=== PATIENT | female | born 1935 | race Caucasian/White ===

== ENCOUNTER 2017-06-12 06:34 | Day surgery (SDC) | payer MEDICARE, OTHER ==
[~2017-06-12 06:34] MED LIST: Buffered Lidocaine 0.9% SYRIN* 5 ML/SYR SYRINGE INTRADERM ONE; Famotidine IV* 10 MG/ML 2 ML (20 mg) IV ONE; Metoclopramide TAB* 10 MG PO ONE
[2017-06-12] MEDS ORDERED: Dexamethasone IV* 4 MG/ML 1 ML (4 MG) ONE (06:55)
[2017-06-12] MEDS ORDERED: Ondansetron INJ* 2 MG/ML VIAL ONE ×2 (06:55→07:18)
[2017-06-12] MEDS ORDERED: Metoclopramide TAB* 10 MG ONE (06:55)
[2017-06-12] MEDS ORDERED: Famotidine IV* 10 MG/ML 2 ML (20 mg) ONE (06:55)
[2017-06-12] MEDS ORDERED: Buffered Lidocaine 0.9% SYRIN* 5 ML/SYR SYRINGE ONE (06:55)
[2017-06-12] MEDS ORDERED: Clindamycin 900 MG IVPREMIX(* 900 MG/50 ML SDV IV ONE (06:55)
[2017-06-12] MEDS ORDERED: Bacitracin OINTMENT* 1 TUBE ONE (07:11)
[2017-06-12] MEDS ORDERED: Lidocaine 1.5% EPI 1:200,000* 30 ML SDV ONE (07:11)
[2017-06-12] MEDS ORDERED: KETAMINE HCL* 50 MG/ML 10 ML VIAL ONE (07:18)
[2017-06-12] MEDS ORDERED: Propofol* 10 MG/ML 20 ML BTL IV PUSH ONE (07:18)
[2017-06-12] MEDS ORDERED: fentaNYL* 50 MCG/ML 2 ML VIAL (100 MCG VIAL) ONE (07:18)
[2017-06-12] MEDS ORDERED: Glycopyrrolate IV* 0.2 MG/ML 1 ML VIAL ONE (07:18)
[2017-06-12] MEDS ORDERED: Lidocaine 2% PF * 5 ML VIAL ONE (07:18)
[2017-06-12] MEDS ORDERED: Midazolam* 1 MG/ML 5 ML VIAL (5 MG) ONE (07:18)
[2017-06-12] MEDS ORDERED: Acetaminophen IV 1GM/100ML * 10 MG/ML VIAL IVPB PRN (07:34)
[2017-06-12] MEDS ORDERED: DiMENhydriNATE IV* 50 MG/ML VIAL IV PUSH PRN (07:34)
[2017-06-12] MEDS ORDERED: Lidocaine 2% W/EPI 1:100,000* 20 ML MDV ONE (08:02)
[2017-06-12] MEDS ORDERED: Acetaminophen TAB* 325 MG ONE (09:55)
[2017-06-12 11:21] VITALS: BP 113/71
== END 2017-06-12 11:10 | disposition home or self-care (01) ==
LOC: OR 06:34
PROVIDERS: ATTEND Plastic Surgery
PROC: 0W020ZZ Alteration of Face, Open Approach (ICD-10-PCS; principal; 2017-06-12 07:45)
DX: H02.403 Unspecified ptosis of bilateral eyelids (principal); J44.9 Chronic obstructive pulmonary disease, unspecified; E03.9 Hypothyroidism, unspecified; M81.0 Age-related osteoporosis without current pathological fracture; M19.90 Unspecified osteoarthritis, unspecified site; E78.5 Hyperlipidemia, unspecified
CPT/HCPCS: A9270-GY; J1100; J2250; J2405; J2704; J3010

== ENCOUNTER 2018-01-13 14:51 | Day surgery (SDC) | payer MEDICARE ==
[~2018-01-13 14:51] MED LIST changes: +Clindamycin 900 MG IVPREMIX(* 900 MG/50 ML SDV IV ONE; +Dexamethasone IV* 4 MG/ML 1 ML (4 MG) IV SLOW PU ONE; +Dexamethasone IV* 4 MG/ML 1 ML (4 MG) ONE; +Famotidine TAB* 20 MG ONE; -Metoclopramide TAB* 10 MG PO ONE
[2018-01-13] MEDS ORDERED: Midazolam* 1 MG/ML 5 ML VIAL (5 MG) ONE (16:26)
[2018-01-13] MEDS ORDERED: fentaNYL* 50 MCG/ML 2 ML VIAL (100 MCG VIAL) ONE (16:26)
[2018-01-13] MEDS ORDERED: Propofol* 10 MG/ML 20 ML BTL IV PUSH ONE (16:27)
[2018-01-13] MEDS ORDERED: Ondansetron INJ* 2 MG/ML VIAL ONE (16:27)
[2018-01-13] MEDS ORDERED: Mineral Oil Sterile, TOPICAL* 25 ML BTL ONE (17:06)
[2018-01-13] MEDS ORDERED: Methylene Blue 0.5 %* 50 MG/10 ML AMP IV ONE (17:06)
[2018-01-13] MEDS ORDERED: Lidocain 1% EPI 1:100,000 * 30 ML MDV ONE (17:06)
[2018-01-13] MEDS ORDERED: Naloxone* 0.4 MG/ML 1 ML VIAL IV PRN (17:24)
[2018-01-13 19:31] VITALS: BP 115/67
== END 2018-01-13 19:46 | disposition home or self-care (01) ==
LOC: OR 14:51
PROVIDERS: ATTEND Plastic Surgery
DX: C44.212 Basal cell carcinoma of skin of right ear and external auricular canal (principal); J44.9 Chronic obstructive pulmonary disease, unspecified; M81.0 Age-related osteoporosis without current pathological fracture; M19.90 Unspecified osteoarthritis, unspecified site; E03.9 Hypothyroidism, unspecified; K22.8 Other specified diseases of esophagus; Z85.850 Personal history of malignant neoplasm of thyroid
CPT/HCPCS: 88305; 88331; 88332; A9270-GY; J1100; J2250; J2405; J2704; J3010

== ENCOUNTER 2018-03-17 12:05 | Emergency (ER) | payer MEDICARE ==
[2018-03-17 12:36] LABS: ABS Basophils 0.1 10^3/ul (0-0.2); ABS Eosinophils 0.2 10^3/ul (0-0.6); ABS Lymphocytes 1.9 10^3/ul (1.0-4.8); ABS Monocytes 0.6 10^3/ul (0-0.8); ABS Nucleated RBC 0 10^3/ul; Eosinophil % 4.7 % (0-6); Hematocrit 48 % (35-47); Hemoglobin 15.9 g/dl (12.0-16.0); Lymphocyte % 39.5 % (25-47); Mean Corpuscular HGB Conc 33 g/dl (31-36); Mean Corpuscular Hemoglobin 30 pg (27-31); Mean Corpuscular Volume 92 fL (80-97); Mean Platelet Volume 8.4 um3 (7.4-10.4); Nucleated Red Blood Cells % 0.1; Platelet Count 254 10^3/ul (150-450); Red Blood Count 5.24 10^6/ul (4.00-5.40); Red Cell Distribution Width 14 % (10.5-15); White Blood Count 4.8 10^3/ul (3.5-10.8)
--- NOTE | 2018-03-17 12:36 | RAD ---
HISTORY: weakness COMPARISONS: February 04, 2008 VIEWS: 4: Frontal dual-energy and lateral views of the chest. FINDINGS: CARDIOMEDIASTINAL SILHOUETTE: The cardiomediastinal silhouette is normal. NOLBERTO: The nolberto are normal. PLEURA: The costophrenic angles are sharp. No pleural abnormalities are noted. LUNG PARENCHYMA: There are calcified granulomas of the right upper lung. There is a noncalcified 0.6 cm nodule of the right upper lung. ABDOMEN: The upper abdomen is clear. There is no subphrenic gas. BONES AND SOFT TISSUES: There is diffuse osteopenia. There is scoliotic curvature of the spine. OTHER: None. IMPRESSION: THERE IS A NONCALCIFIED 0.6 CM NODULE OF THE RIGHT UPPER LUNG ARE SEEN ON THE PREVIOUS EXAMINATION. RECOMMEND CONSIDERATION OF FURTHER EVALUATION WITH CT OF THE CHEST IN THE NONACUTE SETTING.
--- NOTE | 2018-03-17 12:40 | RAD ---
INDICATION: Left-sided weakness COMPARISON: None. TECHNIQUE: Contiguous axial sections of the brain were obtained from the skull base to the vertex without contrast. FINDINGS: The ventricles, cisterns and sulci are within normal limits. There is mild multifocal hypoattenuation of the periventricular and subcortical white matter most consistent with chronic microvascular disease. Otherwise the guardado-white matter differentiation is adequately maintained and there is no sulcal effacement. No significant focal abnormality or mass effect is present. There is no evidence for intracranial hemorrhage. No significant focal osseous abnormality is present. The visualized portion of the paranasal sinuses appear clear. The mastoid air cells are well aerated bilaterally. IMPRESSION: CT findings are consistent with mild chronic microvascular disease in this otherwise nonacute CT of the brain.
[2018-03-17 12:47] LABS: INR 0.88 (0.77-1.02)
[2018-03-17 13:00] LABS: EGFR Non-African American 42.9 (>60)
[2018-03-17 14:52] LABS: Urine Appearance Clear; Urine Blood Negative (Negative); Urine Color Straw; Urine Ketones Negative (Negative); Urine Protein Negative (Negative); Urine Red Blood Cell Absent (Absent); Urine Specific Gravity 1.004 (1.010-1.030); Urine Urobilinogen Negative (Negative); Urine White Blood Cell 1+(6-10/hpf) (Absent)
[2018-03-17 15:02] VITALS: BP 156/90
--- NOTE | 2018-03-20 10:45 | ED ---
Hunter Luna Angela, scribed for Gilberto Soto MD on 03/17/18 at 1214 . Neurological HPI - HPI Summary HPI Summary: This pt is an 83 y/o female presenting to [facility] c/o sudden onset of left arm weakness approximately at 11:20 this morning. Pt reports she was getting ready to do something when she felt her left arm very heavy. She states she then felt her left arm tingling and weak. Pt notes she was not able to lift up her left arm. Denies chest pain, SOB, visual changes, slurred speech, facial droop, difficulty ambulating. Currently denies left arm heaviness and weakness. - History of Current Complaint Stated Complaint: WEAKNESS Hx Obtained From: Patient Onset/Duration: Sudden Onset, Resolved Timing: Sudden Onset Onset Severity: Moderate Current Severity: None Neurological Deficit Location: LUE Pain Intensity: 0 - denies pain Pain Scale Used: 0-10 Numeric Character: Weak, Numbness/Tingling Aggravating: Nothing Alleviating: Spontanious Resolution Associated Signs and Symptoms: Positive: Weakness, Numbness. Negative: Unsteady Gait, Pain, Impaired Speech, Chest Pain, Shortness of Breath - Allergy/Home Medications Allergies/Adverse Reactions: Allergies Allergy/AdvReac Type Severity Reaction Status Date / Time cocoa butter Allergy Rash Verified 01/13/18 15:13 Penicillins Allergy Rash Verified 01/13/18 15:13 Sulfa (Sulfonamide Allergy Rash Verified 01/13/18 15:13 Antibiotics) Home Medications: Home Medications Calcium Carbonate/Vitamin D3 [Calcium 600+D Softgel] 1 cap PO DAILY 03/17/18 [ History Confirmed 03/17/18] Multivitamins/Minerals TAB* [Theragran/minerals TAB*] 1 tab PO DAILY 03/17/18 [ History Confirmed 03/17/18] Tiotropium CAP.INH* [Spiriva CAP.INH*] 1 cap.inh INH DAILY 03/17/18 [History Confirmed 03/17/18] PMH/Surg Hx/FS Hx/Imm Hx Endocrine/Hematology History: Reports: Hx Thyroid Disease - CANCER Cardiovascular History: Reports: Other Cardiovascular Problems/Disorders - dyslipidemia - pt stopped taking simvastatin GI History: Reports: Hx Irritable Bowel, Other GI Disorders - presbyesophagus Musculoskeletal History: Reports: Hx Arthritis - reports in fingers, Other Musculoskeletal History - OSTEOARTHRITIS IN BACK Sensory History: Reports: Hx Cataracts - bilateral, Hx Contacts or Glasses - GLASSES Denies: Hx Hearing Aid Opthamlomology History: Reports: Hx Cataracts - bilateral, Hx Contacts or Glasses - GLASSES Psychiatric History: Reports: 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 2001 RIGHT THYROID LOBECTOMY, [facility] [place]. bilateral cataracts with IOL's - [place] - [facility] [place] BROW LIFT 2017 Hx Anesthesia Reactions: Yes - WAS VERY DROWSY AFTER CATARACT SURGERY Infectious Disease History: No Infectious Disease History: Denies: Traveled Outside the [place] in Last 30 Days - Family History Known Family History: Positive: Cardiac Disease - Father with OR Family History: Paternal aunt with stroke. No FHx of skin CA. - Social History Alcohol Use: Rare Alcohol Amount: maybe 1 per year Substance Use Type: Reports: None Smoking Status (MU): Former Smoker Type: Cigarettes Amount Used/How Often: 1.5-2 PPD Length of Time of Smoking/Using Tobacco: 40 YEARS Have You Smoked in the Last Year: No Review of Systems Negative: Fever Negative: Other - visual changes Negative: Chest Pain Negative: Shortness Of Breath Neurological: Other - POS: dizziness. NEG: difficulty ambulating Positive: Weakness, Numbness - on left arm. Negative: Slurred Speech All Other Systems Reviewed And Are Negative: Yes Physical Exam - Summary Physical Exam Summary: VITAL SIGNS: Reviewed. GENERAL: Patient is a well-developed and nourished female who is lying comfortable in the stretcher. Patient is not in any acute respiratory distress. HEAD AND FACE: No signs of trauma. No ecchymosis, hematomas or skull depressions. No sinus tenderness. EYES: PERRLA, EOMI x 2, No injected conjunctiva, no nystagmus. No photophobia. EARS: Hearing grossly intact. Ear canals and tympanic membranes are within normal limits. MOUTH: Oropharynx within normal limits. NECK: Supple, trachea is midline, no adenopathy, no JVD, no carotid bruit, no c- spine tenderness, neck with full ROM. No meningeal signs, no Kernig's or brudzinskis signs. CHEST: Symmetric, no tenderness at palpation LUNGS: Clear to auscultation bilaterally. No wheezing or crackles. CVS: Regular rate and rhythm, S1 and S2 present, no murmurs or gallops appreciated. ABDOMEN: Soft, non-tender. No signs of distention. No rebound no guarding, and no masses palpated. Bowel sounds are normal. EXTREMITIES: FROM in all major joints, no edema, no cyanosis or clubbing. NEURO: Alert and oriented x 3. No acute neurological deficits. Speech is normal and follows commands. SKIN: Dry and warm GCS: 15 Triage Information Reviewed: Yes Vital Signs On Initial Exam: Initial Vitals Temp Pulse Resp BP Pulse Ox 98.4 F 77 16 157/102 95 03/17/18 12:10 03/17/18 12:10 03/17/18 12:10 03/17/18 12:10 03/17/18 12:10 Vital Signs Reviewed: Yes Diagnostics - Vital Signs Vital Signs Temp Pulse Resp BP Pulse Ox 03/17/18 12:10 98.4 F 77 16 157/102 95 - Laboratory Result Diagrams: 03/17/18 12:20 03/17/18 12:20 Lab Statement: Any lab studies that have been ordered have been reviewed, and results considered in the medical decision making process. - Radiology Chest XR Xray Interpretation: Positive (See Comments) - IMPRESSION: There is a noncalcified 0.6 cm nodule of the right upper lung are seen on the previous examination. Recommend consideration of further evaluation with CT of the chest in the nonacute setting. Dr. Soto has reviewed this radiology report. Radiology Interpretation Completed By: Radiologist - CT Brain CT CT Interpretation: No Acute Changes - IMPRESSION: CT findings are consistent with mild chronic microvascular disease in this otherwise nonacute CT of the brain. Dr. Soto has reviewed this radiology report. CT Interpretation Completed By: Radiologist - EKG 12:14 Cardiac Rate: NL - at 69 bpm EKG Rhythm: Sinus Rhythm EKG Interpretation: No ST elevations NIH Scale - NIH Scale Level of Consciousness: Alert/Keenly Responsive Ask Patient the Month and His/Her Age: Both Correct Ask Pt to Open/Close Eyes and Nurse Chemical Dependency/Release Non-Paretic Hand: Both Correctly Best Gaze (Only Horizontal Eye Movement): Normal Visual Field Testing: No Visual Loss Facial Paresis-Pt to Smile & Close Eyes or Grimace Symmetry: Normal/Symmetrical Motor Function - Right Arm: No Drift-Holds 10 Seconds Motor Function - Left Arm: No Drift-Holds 10 Seconds Motor Function - Right Leg: No Drift-Holds 10 Seconds Motor Function - Left Leg: No Drift-Holds 10 Seconds Limb Ataxia-Must be out of Proportion to Weakness Present: Absent Sensory (Use Pinprick to Test Arms/Legs/Trunk/Face): Normal Best Language (Describe Picture, Name Items): No Aphasia Dysarthria (Read Several Words): Normal Extinction and Inattention: No Abnormality Total Score: 0 Course/Dx - Course Assessment/Plan: Pt is an 83 y/o female who presents with sudden onset of left arm weakness and heaviness at approximately 11:20 this morning. Pt notes her left arm weakness and heaviness has currently spontaneously resolved. Test results without any significant abnormalities except for increased BUN and creatinine, possibly secondary to dehydration. She was given IV fluids. Urinalysis is negative for UTI. Chest XR shows there is a noncalcified 0.6 cm nodule of the right upper lung are seen on the previous examination. Recommend consideration of further evaluation with CT of the chest in the nonacute setting. Brain CT reveals CT findings are consistent with mild chronic microvascular disease in this otherwise nonacute CT of the brain. Since the beginning pt had no neurological focal deficits. She has an NIH score of 0. Pt had frequent neuro checks and pt has no neurological focal deficits. I consulted with Dr. Post, neurologist, and after his assessment his recommendation is that the pt can be discharged home with aspirin and follow up with PCP. He reports the pts ABCD score is only 2. I discussed the findings and test results with the pt. All questions were answered to patient satisfaction. There were no further complaints or concerns. She was recommended that if she develops any weakness, tingling, slurred speech, or worsening symptoms she should immediately call 911 and return to the ED. She understands and agrees. Pt is hemodynamically stable, alert and oriented x3. - Diagnoses Provider Diagnoses: Weakness - Physician Notifications Discussed Care Of Patient With: Ignacia Post Time Discussed With Above Provider: 14:46 Instructed by Provider To: Other - I discussed pt care with Dr. Post, neurologist, who reports the pt meets an ABCD score of 2 and she can be discharged home with follow up from PCP. Discharge - Sign-Out/Discharge Documenting (check all that apply): Discharge/Admit/Transfer - Discharge - Discharge Plan Condition: Stable Disposition: HOME Patient Education Materials: Weakness (ED) Referrals: Deep Lopez DO [Doctor of Osteopathy] - 3 Days Additional Instructions: Please follow up with your primary care provider. RETURN TO THE ED FOR ANY NEW OR WORSENING SYMPTOMS. The documentation as recorded by the Hunter alaniz Angela accurately reflects the service I personally performed and the decisions made by me, Gilberto Soto MD.
== END 2018-03-17 15:12 | disposition home or self-care (01) ==
LOC: ED 12:05
DX: R53.1 Weakness (principal); R20.0 Anesthesia of skin; R42 Dizziness and giddiness; E78.5 Hyperlipidemia, unspecified; K58.9 Irritable bowel syndrome, unspecified; K22.8 Other specified diseases of esophagus; M47.819 Spondylosis without myelopathy or radiculopathy, site unspecified; F41.9 Anxiety disorder, unspecified; Z85.850 Personal history of malignant neoplasm of thyroid; Z88.0 Allergy status to penicillin; Z88.2 Allergy status to sulfonamides; Z87.891 Personal history of nicotine dependence; Z82.49 Family history of ischemic heart disease and other diseases of the circulatory system; Z82.3 Family history of stroke
CPT/HCPCS: 36415; 70450; 71046; 80053; 80061; 80307; 81003; 81015; 83605; 84484; 85025; 85610; 85730; 86850; 86900; 86901; 87086; 93005; 99283

== ENCOUNTER 2018-09-07 15:47 | Emergency (ER) | payer MEDICARE ==
--- OUTSIDE RECORDS SUMMARY | 2018-09-07 16:12 | XMS REPORT ---
:1935 External Reference #:[id number] Author Organization [employer] Address [address] [place] [address] Phone [phone] Care Team Providers Name Role Phone Chino Shaffer MD Care Team Information Sprayer Machine Unavailable Isak Antonio MD Primary Care Physician Unavailable Payers Type Date Identification Numbers Payment Provider Subscriber Commercial Policy Number: [id number] [facility] Shell Garcia PayID: [id number] [place] [address] Advance Directives Type Date Description Status Comment Other Directive 08/04/2018 Health Care Proxy Current and Verified Problems Date Description Provider Status Onset: 05/13/2011 Chronic obstructive lung disease Gilberto Monroe M.D. Active Onset: 05/13/2011 Hypothyroidism Gilberto Monroe M.D. Active Onset: 05/13/2011 Mixed hyperlipidemia Gilberto Monroe M.D. Active Onset: 05/13/2011 Osteoporosis Gilberto Monroe M.D. Active Onset: 11/26/2011 Pure hypercholesterolemia Gilberto Monroe M.D. Active Onset: 03/23/2018 Chronic kidney disease stage 2 Isak Antonio M.D. Active Family History Date Family Member(s) Problem(s) Comments General Diabetes General Cancer Social History Type Date Description Comments Lives With Alone Occupation Retired Cigarette Use Quit 9 Years Ago ETOH Use Denies alcohol use Smoking Patient is a former smoker Exercise Type/Frequency Exercises regularly walks regularly Allergies, Adverse Reactions, Alerts Date Description Reaction Status Severity Comments 10/11/2009 Penicillin Urticaria active Moderate 04/02/2018 Sulfa Antibiotics active Medications Medication Date Status Form Strength Qnty SIG Indications Ordering Provider Spacer For 08/07/ Active 1units use as J44.9 Isak Inhaler 2018 directed Alli Antonio Levothyroxine 06/23/ Active Tablets 50mcg 90tabs 1 by mouth Isak Sodium 2018 every day Alli Antonio Proair HFA 05/07/ Active Aerosol 108(90Base 25.5gm 2 puffs by Isak 2018 ) mcg/Act mouth Pachika, every 4 M.D. hours as needed Multivitamins 10/11/ Active Tablets 90tabs 1 po qd Unknown 2009 Calcium 500/D 10/11/ Active Chewtabs 500-400mg- 1 po pm Deena 2009 Unit Chino Sorto MD Simvastatin / Active Tablets 20mg 90tabs Take 1 Gilberto E. 0000 Tablet By Buck Monroe Once M.D. Daily Spiriva / Active Capsules 18mcg 90caps inhale 1 Gilberto E. Handihaler 0000 capsule by buck Monroe M.DLiane every morning Metamucil / Active Capsules 0.52gm 60caps 1 cap po Unknown 0000 bid with water Centravites 50 / Active Tablets 50Plus Unknown Plus 0000 Tylenol / Active Tablets 325mg take 2 Unknown 0000 tabs as needed every 6 hours for pain/fever Biotin / Active Tablets 5000mcg 1 tablet Unknown 0000 every other day Asa 10/11/ Hx 81mg 100uni 1 po qd Deena 2009 - adonay Sorto, 2017 Alendronate / Hx Tablets 70mg 12tabs 1 po Gilberto E. Sodium 0000 - weekly Mabel 11/26/ M.DLiane 2011 Psyllium / Hx prn Unknown Tablets 0000 - 2012 Proair HFA / Hx Aerosol 108(90Base 1units 2 puffs po Gilberto E. 0000 - ) mcg/ac qid prn Mabel 05/17/ M.DLiane 2012 Proair HFA / Hx Aerosol 108(90Base 1units inhale 2 Isak 0000 - ) mcg/ac puffs by Marsiela, 05/07/ mouth four M.D. 2018 times a day if needed Proair HFA / Hx Aerosol 108(90Base 1units inhale 2 Gilberto E. 0000 - ) mcg/ac puffs by Mabel 05/17/ mouth four M.D. 2013 times a day if needed Alendronate / Hx Tablets 70mg take 1 Unknown Sodium 0000 - tablet by 2018 every week Medications Administered in Office Medication Date Status Form Strength Qnty SIG Indications Ordering Provider Influenza,Unsp Administered Injection Unknown ecified 018 Immunizations CPT Code Status Date Vaccine Lot # [id number] Given 07/06/2012 Fluzone Vaccine [id number] Given 05/13/2011 Tetanus And Diptheria (Td) For Adult Use [id number] Preservative Free 98413 Given 08/17/2010 Pneumonia Vaccine [id number] Given 07/04/2010 Influenza Virus 3Yrs & Over 64530 Given 07/04/2010 Influenza Virus 3Yrs & Over [id number] 50118 Given 10/11/2009 Influenza Virus Vaccine, Pandemic Formulation 80698 Given 10/11/2009 Administration Swine Flu Shot 53116 Given Unknown Zoster (Zostavax) Vital Signs Date Vital Result Comment 08/13/2018 Height 60.75 inches 5'0.75" Weight 118.00 lb BP Systolic 124 mmHg BP Diastolic 78 mmHg Respiratory Rate 20 /min Pain Level 8 BMI (Body Mass Index) 22.5 kg/m2 08/04/2018 Height 60.75 inches 5'0.75" Weight 118.00 lb Heart Rate 86 /min BP Systolic Sitting 140 mmHg BP Diastolic Sitting 70 mmHg Body Temperature 97.7 F O2 % BldC Oximetry 91 % BMI (Body Mass Index) 22.5 kg/m2 06/23/2018 Height 60.75 inches 5'0.75" Weight 119.00 lb Heart Rate 90 /min BP Systolic 100 mmHg BP Diastolic 60 mmHg O2 % BldC Oximetry 93 % BMI (Body Mass Index) 22.7 kg/m2 04/02/2018 Height 60.75 inches 5'0.75" Weight 117.00 lb Heart Rate 83 /min BP Systolic Sitting 116 mmHg BP Diastolic Sitting 78 mmHg Body Temperature 98.8 F O2 % BldC Oximetry 94 % BMI (Body Mass Index) 22.3 kg/m2 03/23/2018 Height 60.75 inches 5'0.75" Weight 120.00 lb Heart Rate 94 /min BP Systolic 122 mmHg BP Diastolic 70 mmHg Body Temperature 99.0 F O2 % BldC Oximetry 93 % BMI (Body Mass Index) 22.9 kg/m2 10/20/2012 Height 60.75 inches 5'0.75" Weight 129.00 lb Heart Rate 90 /min BP Systolic Sitting 113 mmHg BP Diastolic Sitting 71 mmHg BMI (Body Mass Index) 24.6 kg/m2 11/26/2011 Height 60.5 inches 5'0.50" Weight 129.75 lb Heart Rate 78 /min BP Systolic Sitting 120 mmHg BP Diastolic Sitting 80 mmHg BMI (Body Mass Index) 24.9 kg/m2 05/13/2011 Height 60.5 inches 5'0.50" Weight 133.00 lb Heart Rate 94 /min BP Systolic Sitting 124 mmHg BP Diastolic Sitting 94 mmHg BMI (Body Mass Index) 25.5 kg/m2 11/12/2010 Height 60.5 inches 5'0.50" Weight 135.00 lb Heart Rate 88 /min BP Systolic Sitting 94 mmHg BP Diastolic Sitting 70 mmHg BMI (Body Mass Index) 25.9 kg/m2 05/10/2010 Weight 133.00 lb Heart Rate 94 /min BP Systolic Sitting 122 mmHg BP Diastolic Sitting 84 mmHg 10/11/2009 Height 60.5 inches 5'0.50" Weight 130.00 lb Heart Rate 88 /min BP Systolic Sitting 120 mmHg BP Diastolic Sitting 80 mmHg BMI (Body Mass Index) 25.0 kg/m2 Results Test Date Test Result H/L Range Note Comp Metabolic Panel 06/26/2018 Sodium 141 mmol/L 135-145 Potassium 4.5 mmol/L 3.5-5.0 Chloride 108 mmol/L 101-111 Co2 Carbon Dioxide 27 mmol/L 22-32 Anion Gap 6 mmol/L 2-11 Glucose 86 mg/dL 70-100 Blood Urea Nitrogen 24 mg/dL 6-24 Creatinine 1.19 mg/dL High 0.51-0.95 BUN/Creatinine Ratio 20.2 High 8-20 Calcium 9.3 mg/dL 8.6-10.3 Total Protein 6.1 g/dL Low 6.4-8.9 Albumin 3.9 g/dL 3.2-5.2 Globulin 2.2 g/dL 2-4 Albumin/Globulin Ratio 1.8 1-3 Total Bilirubin 0.50 mg/dL 0.2-1.0 Alkaline Phosphatase 63 U/L 34-104 Alt 19 U/L 7-52 Ast 21 U/L 13-39 Egfr Non- 43.3 >60 Egfr 52.4 >60 1 Lipid Profile (Trig/Chol/HDL) 03/26/2018 Triglycerides 161 mg/dL 2 Cholesterol 239 mg/dL 3 HDL Cholesterol 59.3 mg/dL 4 LDL Cholesterol 148 mg/dL 5 Lipid Panel - [facility]3] 10/13/2012 Creatine Kinase 69 U/L 0-200 CMP Panel 10/13/2012 Sodium 136 mmol/L 133-145 Potassium 4.5 mmol/L 3.5-5.0 Chloride 103 mmol/L 101-111 Co2 Carbon Dioxide 26.0 mmol/L 22-32 Anion Gap 7.0 mmol/L 2-11 Glucose 93 mg/dL 70-100 Blood Urea Nitrogen 22 mg/dL 6-24 Creatinine 1.20 mg/dL 0.50-1.40 BUN/Creatinine Ratio 18.3 8-20 Calcium 9.5 mg/dL 8.1-9.9 Total Protein 6.4 g/dL 6.2-8.1 Albumin 4.0 g/dL 3.2-5.2 Globulin 2.4 g/dL 2-4 Albumin/Globulin Ratio 1.7 1-3 Total Bilirubin 0.7 mg/dL 0.4-1.5 Alkaline Phosphatase 74 U/L 30-110 Alt 20 U/L 14-54 Ast 22 U/L 12-42 Egfr Non- 43.6 >60 Egfr 56.0 >60 6 Lipid Panel 10/13/2012 Triglycerides 187 mg/dL 40-200 Cholesterol 225 mg/dL High Less than 200 HDL Cholesterol 69 mg/dL High 40-60 7 Cholesterol/HDL Ratio 3.3 Average 1-4.44 LDL Cholesterol 118.6 mg/dL High Less Than 100 8 Laboratory test finding 10/13/2012 TSH (Thyroid Stimulating 1.16 miu/mL 0.34-5.60 Horm) Free T4 1.08 ng/mL 0.61-1.24 Lipid Panel 11/21/2011 Triglyceride 143 mg/dL 40-200 Cholesterol 189 mg/dL Less Than 200 9 High Density Lipoprotein 66 mg/dL High 40-60 10 Cholesterol/HDL Ratio 2.86 AVERAGE 1-4.44 Low Density Lipoprotein 94 mg/dL Less Than 100 11 CMP Panel 11/21/2011 Sodium 139 mmol/L 135-145 Potassium 4.5 mmol/L 3.5-5.0 Chloride 106 mmol/L 101-111 Co2 (Carbon Dioxide) 24.0 mmol/L 22-32 Anion Gap 9.0 mmol/L 2-11 12 Glucose 97 mg/dL 70-100 BUN 21 mg/dL 6-24 Creatinine 1.4 mg/dL 0.50-1.40 One Over Creatinine 0.71 BUN/Creatinine Ratio 15.0 8-20 Calcium 9.8 mg/dL 8.1-9.9 Total Protein 6.5 GM/DL 6.2-8.1 Albumin 4.1 GM/DL 3.2-5.2 Globulin 2.4 GM/DL 2-4 Albumin/Globulin Ratio 1.7 1-3 Bilirubin Total 0.9 mg/dL 0.4-1.5 13 Alkaline Phosphatase 58 U/L 30-110 Alt (SGPT) 23 U/L 14-54 Ast (Sgot) 25 U/L 12-42 eGFR Non- 36.6 > 60 eGFR 47.0 > 60 14 Laboratory test finding 11/21/2011 CPK (Creatine Kinase) 91 U/L 0-170 TSH 1.35 MIU/ML 0.34-5.60 Thyroxine Free 1.09 ng/dL 0.61-1.24 DR Monroe's Lab Panel 05/08/2011 TSH 0.68 MIU/ML 0.34-5.60 Comp Metabolic Panel 05/08/2011 Sodium 140 mmol/L 135-145 Potassium 4.9 mmol/L 3.5-5.0 Chloride 106 mmol/L 101-111 Co2 (Carbon Dioxide) 29.0 mmol/L 22-32 Anion Gap 5.0 mmol/L 2-11 15 Glucose 89 mg/dL 70-100 BUN 21 mg/dL 6-24 Creatinine 1.30 mg/dL 0.50-1.40 One Over Creatinine 0.70 BUN/Creatinine Ratio 16.2 8-20 Calcium 10.0 mg/dL High 8.1-9.9 Total Protein 6.4 GM/DL 6.2-8.1 Albumin 4.1 GM/DL 3.2-5.2 Globulin 2.3 GM/DL 2-4 Albumin/Globulin Ratio 1.8 1-3 Bilirubin Total 0.9 mg/dL 0.4-1.5 16 Alkaline Phosphatase 61 U/L 30-110 Alt (SGPT) 20 U/L 14-54 Ast (Sgot) 22 U/L 12-42 eGFR Non- 39.8 > 60 eGFR 51.2 > 60 17 Lipid Profile (Trig/Chol/HDL) 05/08/2011 Triglyceride 253 mg/dL High 40- 200 Cholesterol 199 mg/dL Less Than 200 18 High Density Lipoprotein 61 mg/dL High 40-60 19 Cholesterol/HDL Ratio 3.26 AVERAGE 1-4.44 Low Density Lipoprotein 87 mg/dL Less Than 100 20 CBC Auto Diff 05/08/2011 White Blood Count 5.2 CUMM 4.8-10.8 Red Cell Count 4.76 CUMM 4.2-5.4 Hemoglobin 15.1 g/dL 12.0-16.0 Hematocrit 44 % 35-47 Mean Corpuscular Volume 93 um3 79-97 Mean Corpuscular Hemoglob 32 pg High 27-31 Mean Corpuscular HGB Cone 34 g/dL 32-36 Redcell Distribution WDTH 14 % 10.5-15 Platelet Count 231 CUMM 150-450 Mean Platelet Volume 8.9 um3 7.4-10.4 Gran % 55.4 % 38-83 Lymph % 30.0 % 25-47 Mononuclear % 9.1 % High 1-9 Eosinophil % 4.5 % 0-6 Basophil % 1.0 % 0-2 Abs Lymphs 1.6 1.0-4.8 Abs Mononuclear 0.5 0-0.8 Absolute Neutrophil Count 2.9 1.5-7.7 Abs Eosinophils 0.2 0-0.6 Abs Basophils 0 0-0.2 DR Monroe's Lab Panel 11/05/2010 TSH 1.11 MIU/ML 0.34-5.60 CBC W/Manual Diff 11/05/2010 White Blood Count 4.7 CUMM Low 4.8-10.8 Red Cell Count 4.63 CUMM 4.2-5.4 Hemoglobin 14.2 g/dL 12.0-16.0 Hematocrit 43 % 35-47 Mean Corpuscular Volume 93 um3 79-97 Mean Corpuscular Hemoglob 31 pg 27-31 Mean Corpuscular HGB Cone 33 g/dL 32-36 Redcell Distribution WDTH 14 % 10.5-15 Platelet Count 241 CUMM 150-450 Mean Platelet Volume 9.0 um3 7.4-10.4 Polysegmented Neutrophil 44 % 38-83 Band Neutrophil 1 % 0-8 Lymphocyte 41 % 25-47 Monocyte 4 % 0-13 Eosinophil 7 % High 0-6 Basophil 2 % 0-2 Atypical Lymph 1 % 0-6 Absolute Neutrophil Count 2.1 RBC Morphology NORMAL Laboratory test finding 11/05/2010 Thyroxine 10.9 g/dL 5-12 Ast (Sgot) 22 U/L 12-42 Alt (SGPT) 20 U/L 14-54 Lipid Panel 11/05/2010 Triglyceride 160 mg/dL 40-200 Cholesterol 204 mg/dL High Less Than 200 21 High Density Lipoprotein 67 mg/dL High 40-60 22 Cholesterol/HDL Ratio 3.04 AVERAGE 1-4.44 Low Density Lipoprotein 105 mg/dL High Less Than 100 23 CMP Panel 11/05/2010 Sodium 137 mmol/L 135-145 Potassium 4.4 mmol/L 3.5-5.0 Chloride 103 mmol/L 101-111 Co2 (Carbon Dioxide) 28.0 mmol/L 22-32 Anion Gap 6.0 mmol/L 2-11 24 Glucose 87 mg/dL 70-100 BUN 23 mg/dL 6-24 Creatinine 1.30 mg/dL 0.50-1.40 One Over Creatinine 0.70 BUN/Creatinine Ratio 17.7 8-20 Calcium 9.8 mg/dL 8.1-9.9 Total Protein 6.3 GM/DL 6.2-8.1 Albumin 4.0 GM/DL 3.2-5.2 Globulin 2.3 GM/DL 2-4 Albumin/Globulin Ratio 1.7 1-3 Bilirubin Total 0.9 mg/dL 0.4-1.5 25 Alkaline Phosphatase 57 U/L 30-110 eGFR Non- 42.4 > 60 eGFR 51.4 > 60 26 Laboratory test finding 05/02/2010 Thyroxine Free 1.23 NG/ML 0.61-1.24 27 Laboratory test finding 05/02/2010 T3 Total 0.86 NG/ML 0.5-1.7 TSH 0.54 MIU/ML 0.34-5.60 Thyroxine Free 12/18/2009 Free Thyroxine 0.94 NG/ML 0.61-1.24 28 Laboratory test finding 12/18/2009 Thyroperoxidase AB 0.8 IU/mL <9.0 29 Laboratory test finding 12/18/2009 TSH 0.82 MIU/ML 0.34-5.60 1 Because ethnic data is not always readily available, this report includes an eGFR for both -Americans and non- Americans. The National Kidney Disease Education Program (NKDEP) does not endorse the use of the MDRD equation for patients that are not between the ages of 18 and 70, are , have extremes of body size, muscle mass, or nutritional status, or are non- or non-. According to the National Kidney Foundation, irrespective of diagnosis, the stage of the disease is based on the level of kidney function: Stage Description GFR(mL/min/1.73 m(2)) 1 Kidney damage with normal or decreased GFR 90 2 Kidney damage with mild decrease in GFR 60-89 3 Moderate decrease in GFR 30-59 4 Severe decrease in GFR 15-29 5 Kidney failure <15 (or dialysis) 2 Desirable: <150 Borderline High: 150-199 High: 200-499 Very High: >500 3 Desirable: <200 Borderline High: 200-239 High: >239 4 Low: <40 Desirable: 40-60 High: >60 5 Desirable: <100 Near Optimal: 100-129 Borderline High: 130-159 High: 160-189 Very High: >189 6 Because ethnic data is not always readily available, this report includes an eGFR for both -Americans and non- Americans. The National Kidney Disease Education Program (NKDEP) does not endorse the use of the MDRD equation for patients that are not between the ages of 18 and 70, are , have extremes of body size, muscle mass, or nutritional status, or are non- or non-. According to the National Kidney Foundation, irrespective of diagnosis, the stage of the disease is based on the level of kidney function: Stage Description GFR(mL/min/1.73 m(2)) 1 Kidney damage with normal or decreased GFR 90 2 Kidney damage with mild decrease in GFR 60-89 3 Moderate decrease in GFR 30-59 4 Severe decrease in GFR 15-29 5 Kidney failure <15 (or dialysis) 7 HDL Interpretation: Undesirable: High Risk: Less than 40 MG/DL Desirable: Low Risk: Greater than 60 MG/DL 8 LDL Interpretation: Low Risk Optimal Level: LDL Less than 100 MG/DL Near or Above Optimal: LDL 100-129 MG/DL Borderline High Risk: LDL 130-159 MG/DL High Risk: LDL 160-189 MG/DL Very High Risk: LDL Greater than 189 MG/DL 9 CHOLESTEROL INTERPRETATION: Desirable: Less than 200 MG/DL Borderline-High Risk: 200-239 MG/DL High-Risk: 240 MG/DL and over 10 HDL INTERPRETATION: Undesirable: High Risk: Less than 40 MG/DL Desirable: Low Risk: Greater than 60 MG/DL 11 LDL INTERPRETATION: Low Risk Optimal Level: LDL Less than 100 MG/DL Near or Above Optimal: LDL 100-129 MG/DL Borderline High Risk: LDL 130-159 MG/DL High Risk: LDL 160-189 MG/DL Very High Risk: LDL Greater than 189 MG/DL 12 Anion gap measurement may be of limited value in the presence of any alkalosis, especially in a combined acid base disorder. . 13 A metabolite of Naproxen, O-desmethylnaproxen, has been shown to interfere with the [place] method for measuring total bilirubin. Samples from patients who have taken Naproxen have shown spurious elevation in total bilirubin levels. 14 Because ethnic data is not always readily available, this report includes an eGFR for both -Americans and non- Americans. The National Kidney Disease Education Program (NKDEP) does not endorse the use of the MDRD equation for patients that are not between the ages of 18 and 70, are , have extremes of body size, muscle mass, or nutritional status, or are non- or non-. According to the National Kidney Foundation, irrespective of diagnosis, the stage of the disease is based on the level of kidney function: Stage Description GFR(mL/min/1.73 m(2)) 1 Kidney damage with normal or decreased GFR 90 2 Kidney damage with mild decrease in GFR 60-89 3 Moderate decrease in GFR 30-59 4 Severe decrease in GFR 15-29 5 Kidney failure <15 (or dialysis) 15 Anion gap measurement may be of limited value in the presence of any alkalosis, especially in a combined acid base disorder. . 16 A metabolite of Naproxen, O-desmethylnaproxen, has been shown to interfere with the [place] method for measuring total bilirubin. Samples from patients who have taken Naproxen have shown spurious elevation in total bilirubin levels. 17 Because ethnic data is not always readily available, this report includes an eGFR for both -Americans and non- Americans. The National Kidney Disease Education Program (NKDEP) does not endorse the use of the MDRD equation for patients that are not between the ages of 18 and 70, are , have extremes of body size, muscle mass, or nutritional status, or are non- or non-. According to the National Kidney Foundation, irrespective of diagnosis, the stage of the disease is based on the level of kidney function: Stage Description GFR(mL/min/1.73 m(2)) 1 Kidney damage with normal or decreased GFR 90 2 Kidney damage with mild decrease in GFR 60-89 3 Moderate decrease in GFR 30-59 4 Severe decrease in GFR 15-29 5 Kidney failure <15 (or dialysis) 18 CHOLESTEROL INTERPRETATION: Desirable: Less than 200 MG/DL Borderline-High Risk: 200-239 MG/DL High-Risk: 240 MG/DL and over 19 HDL INTERPRETATION: Undesirable: High Risk: Less than 40 MG/DL Desirable: Low Risk: Greater than 60 MG/DL 20 LDL INTERPRETATION: Low Risk Optimal Level: LDL Less than 100 MG/DL Near or Above Optimal: LDL 100-129 MG/DL Borderline High Risk: LDL 130-159 MG/DL High Risk: LDL 160-189 MG/DL Very High Risk: LDL Greater than 189 MG/DL 21 CHOLESTEROL INTERPRETATION: Desirable: Less than 200 MG/DL Borderline-High Risk: 200-239 MG/DL High-Risk: 240 MG/DL and over 22 HDL INTERPRETATION: Undesirable: High Risk: Less than 40 MG/DL Desirable: Low Risk: Greater than 60 MG/DL 23 LDL INTERPRETATION: Low Risk Optimal Level: LDL Less than 100 MG/DL Near or Above Optimal: LDL 100-129 MG/DL Borderline High Risk: LDL 130-159 MG/DL High Risk: LDL 160-189 MG/DL Very High Risk: LDL Greater than 189 MG/DL 24 Anion gap measurement may be of limited value in the presence of any alkalosis, especially in a combined acid base disorder. . 25 A metabolite of Naproxen, O-desmethylnaproxen, has been shown to interfere with the [place]- method for measuring total bilirubin. Samples from patients who have taken Naproxen have shown spurious elevation in total bilirubin levels. 26 Because ethnic data is not always readily available, this report includes an eGFR for both -Americans and non- Americans. The National Kidney Disease Education Program (NKDEP) does not endorse the use of the MDRD equation for patients that are not between the ages of 18 and 70, are , have extremes of body size, muscle mass, or nutritional status, or are non- or non-. According to the National Kidney Foundation, irrespective of diagnosis, the stage of the disease is based on the level of kidney function: Stage Description GFR(mL/min/1.73 m(2)) 1 Kidney damage with normal or decreased GFR 90 2 Kidney damage with mild decrease in GFR 60-89 3 Moderate decrease in GFR 30-59 4 Severe decrease in GFR 15-29 5 Kidney failure <15 (or dialysis) 27 PLEASE NOTE NEW REFERENCE RANGES. 28 PLEASE NOTE NEW REFERENCE RANGES. 29 Test Performed by: [facility] D[facility] Lab Med and Pathology [address] [place] [address] [employer]: Casper Saleh III, M.D. Procedures Date CPT Code Description Status 03/24/2018 Bone Mineral Density Test Completed 11/02/2012 Mammogram Completed 10/20/2012 56034 Pulmonary Function><Bronchodilator Completed 11/16/2009 Bone Mineral Density Test Completed Encounters Type Date Location Provider CPT E/M Dx Office Visit 06/23/2018 1:40p [facility] Isak Antonio, [address]107 J44.9 - [place] Nickolas Carson E03.9 M81.0 N18.2 Office Visit 04/02/2018 12:50p [facility] Isak Antonio, 48156 D18.00 Medicine - [place] Nickolas Thompson.DLiane Office Visit 03/23/2018 3:20p [facility] Isak Antonio, 80471 J44.9 Medicine - [place] Nickolas Carson E78.2 M81.0 E03.9 N18.2 Office Visit 10/20/2012 1:40p [facility] Gilberto Monroe, 75368 272.0 - [place] Carson 244.9 496 733.00 V76.10 Office Visit 11/26/2011 10:00a [facility], [address] 272.0 - [place] Jay.DLiane 244.9 496 733.00 Office Visit 05/13/2011 1:00p DO Not Use Doctor'S Assistant AT [facility], [address] [address] [facility] M.D. 272.2 244.9 733.00 V06.5 Office Visit 11/12/2010 1:40p DO Not Use Doctor'S Assistant AT [facility], [address] [address] [facility] M.D. 244.9 272.0 733.00 Office Visit 05/10/2010 10:20a DO Not Use Doctor'S Assistant AT [facility], [address] [address] [facility] M.D. 244.9 272.0 733.00 Office Visit 10/11/2009 2:20p DO Not Use Doctor'S Assistant AT [facility], [address] [address] [facility] M.D. 244.9 272.0 733.00 V04.81 Plan of Care Future Appointment(s):09/15/2018 1:15 pm - Gayathri Chahal MD at [facility]09/22/2018 1:00 pm - Isak Antonio M.D. at [facility] - [place] [address]
--- OUTSIDE RECORDS SUMMARY | 2018-09-07 16:12 | XMS REPORT ---
:1935 External Reference #:[id number] Author Organization [employer] Address [address] [facility] [place] [address] Phone [phone] Care Team Providers Name Role Phone Chino Shaffer MD Care Team Information Cattle Feeder Unavailable Isak Antonio MD Primary Care Physician Unavailable Payers Type Date Identification Numbers Payment Provider Subscriber Commercial Policy Number: [id number] [facility] Shell Garcia PayID: [id number] [facility] [id number] [place] [address] Advance Directives Type Date Description Status Comment Other Directive 08/04/2018 Health Care Proxy Current and Verified Problems Date Description Provider Status Onset: 05/13/2011 Chronic obstructive lung disease Gilberto Monroe M.D. Active Onset: 05/13/2011 Hypothyroidism Gilberto Monroe M.D. Active Onset: 05/13/2011 Mixed hyperlipidemia Gilberto Monroe M.D. Active Onset: 05/13/2011 Osteoporosis Gilberto Monroe M.D. Active Onset: 11/26/2011 Pure hypercholesterolemia iGlberto Monroe M.D. Active Onset: 03/23/2018 Chronic kidney disease stage 2 Isak Antonio M.D. Active Social History Type Date Description Comments Cigarette Use Quit 9 Years Ago ETOH Use Denies alcohol use Smoking Patient is a former smoker Exercise Type/Frequency Exercises regularly walks regularly Allergies, Adverse Reactions, Alerts Date Description Reaction Status Severity Comments 10/11/2009 Penicillin Urticaria active Moderate 04/02/2018 Sulfa Antibiotics active Medications Medication Date Status Form Strength Qnty SIG Indications Ordering Provider Spacer For 1units use as J44.9 Isak Inhaler 2018 directed Alli Antonio Levothyroxine 06/23/ Active Tablets 50mcg 90tabs 1 by mouth Isak Sodium 2018 every day Alli Antonio Proair HFA 05/07/ Active Aerosol 108(90Base 25.5gm 2 puffs by Isak 2018 ) mcg/Act mouth Pachika, every 4 M.D. hours as needed Asa 10/11/ Active 81mg 100uni 1 po qd Deena, 2009 ts Chino Sorto MD Multivitamins 10/11/ Active Tablets 90tabs 1 po [...] / Active Tablets 50Plus Unknown Plus 0000 Alendronate / Hx Tablets 70mg 12tabs 1 [...] Isak 0000 - ) mcg/ac puffs by Marisela 05/07/ mouth four M.D. 2018 times a day if needed Proair HFA / Hx Aerosol 108(90Base 1units inhale 2 Gilberto E. 0000 - ) mcg/ac puffs by Mabel 05/17/ mouth four M.D. 2012 times a day if needed Alendronate / Hx Tablets 70mg take 1 Unknown Sodium 0000 - tablet by mouth 2018 every week Medications Administered in Office Medication Date Status Form Strength Qnty SIG Indications Ordering Provider Influenza,Raimundo Administered Injection Unknown ecified 018 Immunizations CPT Code Status Date Vaccine Lot # [id number] Given 07/06/2012 Fluzone Vaccine [id number] Given 05/13/2011 Tetanus And Diptheria (Td) For Adult Use [id number] Preservative Free 84445 Given 08/17/2010 Pneumonia Vaccine [id number] [id number] Given 07/04/2010 Influenza Virus 3Yrs & Over 97634 Given 07/04/2010 Influenza Virus 3Yrs & Over [id number] Given 10/11/2009 Influenza Virus Vaccine, Pandemic Formulation 25100 Given 10/11/2009 Administration Swine Flu Shot 20132 Given Unknown Zoster (Zostavax) Vital Signs Date Vital Result Comment 08/04/2018 Height 60.75 inches 5'0.75" Weight 118.00 [...] Cholesterol 148 mg/dL 5 Lipid Panel - [facility] 10/13/2012 Creatine Kinase 69 U/L 0-200 CMP [...] Lab Panel 11/05/2010 TSH 1.11 MIU/ML 0.34-5.60 CMP Panel 11/05/2010 Sodium 137 mmol/L 135-145 Potassium 4.4 mmol/L 3.5-5.0 Chloride 103 mmol/L 101-111 Co2 (Carbon Dioxide) 28.0 mmol/L 22-32 Anion Gap 6.0 mmol/L 2-11 21 Glucose 87 mg/dL 70-100 BUN 23 mg/dL 6-24 Creatinine 1.30 mg/dL 0.50-1.40 One Over Creatinine 0.70 BUN/Creatinine Ratio 17.7 8-20 Calcium 9.8 mg/dL 8.1-9.9 Total Protein 6.3 GM/DL 6.2-8.1 Albumin 4.0 GM/DL 3.2-5.2 Globulin 2.3 GM/DL 2-4 Albumin/Globulin Ratio 1.7 1-3 Bilirubin Total 0.9 mg/dL 0.4-1.5 22 Alkaline Phosphatase 57 U/L 30-110 eGFR Non- 42.4 > 60 eGFR 51.4 > 60 23 Lipid Panel 11/05/2010 Triglyceride 160 mg/dL 40-200 Cholesterol 204 mg/dL High Less Than 200 24 High Density Lipoprotein 67 mg/dL High 40-60 25 Cholesterol/HDL Ratio 3.04 AVERAGE 1-4.44 Low Density Lipoprotein 105 mg/dL High Less Than 100 26 Laboratory test finding 11/05/2010 Thyroxine 10.9 g/dL 5-12 Ast (Sgot) 22 U/L 12-42 Alt (SGPT) 20 U/L 14-54 CBC W/Manual Diff 11/05/2010 White Blood Count [...] 2.1 RBC Morphology NORMAL Laboratory test finding 05/02/2010 Thyroxine Free 1.23 NG/ML 0.61-1.24 27 Laboratory test finding 05/02/2010 T3 Total 0.86 NG/ML 0.5-1.7 TSH 0.54 MIU/ML 0.34-5.60 Laboratory test finding 12/18/2009 Thyroperoxidase AB 0.8 IU/mL <9.0 28 Thyroxine Free 12/18/2009 Free Thyroxine 0.94 NG/ML 0.61-1.24 29 Laboratory test finding 12/18/2009 TSH 0.82 [...] has been shown to interfere with the Jendrassik-Param method for measuring total bilirubin. Samples from [...] has been shown to interfere with the Jendrassik-Param method for measuring total bilirubin. Samples from [...] Risk: LDL Greater than 189 MG/DL 21 Anion gap measurement may be of limited value in the presence of any alkalosis, especially in a combined acid base disorder. . 22 A metabolite of Naproxen, O-desmethylnaproxen, has been shown to interfere with the Jendrassik-Param method for measuring total bilirubin. Samples from patients who have taken Naproxen have shown spurious elevation in total bilirubin levels. 23 Because ethnic data is not always readily [...] 15-29 5 Kidney failure <15 (or dialysis) 24 CHOLESTEROL INTERPRETATION: Desirable: Less than 200 MG/DL Borderline-High Risk: 200-239 MG/DL High-Risk: 240 MG/DL and over 25 HDL INTERPRETATION: Undesirable: High Risk: Less than 40 MG/DL Desirable: Low Risk: Greater than 60 MG/DL 26 LDL INTERPRETATION: Low Risk Optimal Level: LDL Less than 100 MG/DL Near or Above Optimal: LDL 100-129 MG/DL Borderline High Risk: LDL 130-159 MG/DL High Risk: LDL 160-189 MG/DL Very High Risk: LDL Greater than 189 MG/DL 27 PLEASE NOTE NEW REFERENCE RANGES. 28 Test Performed by: [facility] Dpt of Lab Med and Pathology [address] [place] [address] Mixing Technician: Casper Saleh III, M.D. 29 PLEASE NOTE NEW REFERENCE RANGES. Procedures Date CPT Code Description Status 03/24/2018 Bone Mineral Density Test Completed 11/02/2012 Mammogram Completed 10/20/2012 54437 Pulmonary Function><Bronchodilator Completed 11/16/2009 Bone Mineral Density Test Completed Encounters Type Date Location Provider CPT E/M Dx Office Visit 06/23/2018 1:40p [facility] Isak Antonio, [address] J44.9 - [place] Carson E03.9 M81.0 N18.2 Office Visit 04/02/2018 12:50p [facility] Isak Antonio, 70498 D18.00 Medicine - [place] Office Visit 03/23/2018 3:20p [facility] Isak Antonio, 32738 J44.9 Medicine - [place] Carson E78.2 M81.0 E03.9 N18.2 Office Visit 10/20/2012 1:40p [facility] Gilberto Monroe 18857 272.0 - [place] Carson 244.9 496 733.00 V76.10 Office Visit 11/26/2011 10:00a [facility] Gilberto Monroe 01986 272.0 - [place] Carson 244.9 496 733.00 Office Visit 05/13/2011 1:00p DO Not Use [employer] AT Gilberto Monroe [address] [address] Carson 272.2 244.9 733.00 V06.5 Office Visit 11/12/2010 1:40p DO Not Use [employer] AT Gilberto Monroe [address] [address] 244.9 272.0 733.00 Office Visit 05/10/2010 10:20a DO Not Use [facility], [address] [address] [facility] Alli 244.9 272.0 733.00 Office Visit 10/11/2009 2:20p DO Not Use [facility], [address] [address] [facility] Alli 244.9 272.0 733.00 V04.81 Plan of Care Future Appointment(s):08/13/2018 2:00 pm - Gayathri Chahal MD at [facility]09/22/2018 1:00 pm - Isak Antonio M.D. at [facility] - [address]08/04/2018 - Isak Antonio M.D.M25.511 Pain in right shoulderComments:Tylenol as needed. Apply support with a sling.
[2018-09-07 16:59] LABS: ABS Basophils 0 10^3/ul (0-0.2); ABS Eosinophils 0.2 10^3/ul (0-0.6); ABS Lymphocytes 0.7 10^3/ul (1.0-4.8); ABS Monocytes 0.5 10^3/ul (0-0.8); ABS Neutrophils 3.5 10^3/ul (1.5-7.7); ABS Nucleated RBC 0 10^3/ul; Eosinophil % 4.5 %; Hematocrit 45 % (35-47); Hemoglobin 14.9 g/dl (12.0-16.0); Lymphocyte % 14.2 %; Mean Corpuscular HGB Conc 33 g/dl (31-36); Mean Corpuscular Hemoglobin 31 pg (27-31); Mean Corpuscular Volume 93 fL (80-97); Mean Platelet Volume 7.5 fL (7.4-10.4); Nucleated Red Blood Cells % 0.1; Platelet Count 219 10^3/ul (150-450); Red Blood Count 4.83 10^6/ul (4.00-5.40); Red Cell Distribution Width 15 % (10.5-15)
[2018-09-07 17:16] LABS: EGFR Non-African American 44.2 (>60)
[2018-09-07 18:53] LABS: Urine Appearance Cloudy; Urine Blood 1+ (Negative); Urine Color Yellow; Urine Ketones Negative (Negative); Urine Protein Negative (Negative); Urine Red Blood Cell 3+(>10/hpf) (Absent); Urine Specific Gravity 1.006 (1.010-1.030); Urine Urobilinogen Negative (Negative); Urine White Blood Cell 3+(>20/hpf) (Absent)
[2018-09-07 20:36] VITALS: BP 127/80
[2018-09-07] MEDS ORDERED: Nitrofurantoin Macrocrystals* 100 MG CAP PO ONE (20:52)
[2018-09-07] MEDS ORDERED: Cephalexin CAP* 500 MG PO ONE (20:57)
--- NOTE | 2018-09-07 20:59 | ED ---
HPI Febrile Illness - HPI Summary HPI Summary: Patient complains of fatigue times weeks, persistent right shoulder pain since urge her injury 6 weeks ago, low temperatures over the past 2 days down to 94. Patient states she was evaluated for right shoulder pain by orthopedics and was advised to start weight training. Patient states she has not been weight training but has had increased activity as she is taking care of her son who has stage IV colorectal cancer. Patient states she is also eating less and consuming less fluids as she is stressed and fatigued by taking care of her son. Patient states low temperatures of 94-97 over the past 2 days. Denies fever, cough, sore throat, CP, SOB, N/V/D, abdominal pain, change in urine, change in BM. Medical history is hypothyroid, osteoporosis, COPD, kidney states disease stage II. Former smoker. - History of Current Complaint Chief Complaint: EDGeneral Time Seen by Provider: 09/07/18 18:48 Hx Obtained From: Patient Onset/Duration: Started Days Ago Timing: Intermittent Current Severity: None Pain Intensity: 0 Aggravating Factors: Nothing Alleviating Factors: Nothing Associated Signs and Symptoms: Negative - Allergy/Home Medications Allergies/Adverse Reactions: Allergies Allergy/AdvReac Type Severity Reaction Status Date / Time cocoa butter Allergy Rash Verified 09/07/18 16:01 Penicillins Allergy Rash Verified 09/07/18 16:01 Sulfa (Sulfonamide Allergy Rash Verified 09/07/18 16:01 Antibiotics) PMH/Surg Hx/FS Hx/Imm Hx Endocrine/Hematology History: Reports: Hx Thyroid Disease - CANCER Denies: Hx Anticoagulant Therapy Cardiovascular History: Reports: Other Cardiovascular Problems/Disorders - dyslipidemia - pt stopped taking simvastatin GI History: Reports: Hx Irritable Bowel, Other GI Disorders - presbyesophagus Musculoskeletal History: Reports: Hx Arthritis - reports in fingers, Other Musculoskeletal History - OSTEOARTHRITIS IN BACK Sensory History: Reports: Hx Cataracts - bilateral, Hx Contacts or Glasses - GLASSES Denies: Hx Hearing Aid Opthamlomology History: Reports: Hx Cataracts - bilateral, Hx Contacts or Glasses - GLASSES Psychiatric History: Reports: Hx Anxiety - DUE TO SURGERY - Cancer History Cancer Type, Location and Year: basal cell carcinoma right ear Hx Chemotherapy: No Hx Radiation Therapy: No - Surgical History Surgery Procedure, Year, and Place: rhinoplasty 1970 - [place]. 2000 RIGHT TH[place]RO[place]OM[place] [facility] [place]acts with IOL's - 2015 - [facility] [place]. BROW LIFT 2017 Hx Anesthesia Reactions: Yes - WAS VERY DROWSY AFTER CATARACT SURGERY Infectious Disease History: No Infectious Disease History: Denies: Traveled Outside the [place] in Last 30 Days - Family History Known Family History: Positive: Cardiac Disease - Father with [place] Family History: Paternal aunt with stroke. No FHx of skin CA. - Social History Alcohol Use: Rare Alcohol Amount: maybe 1 per year Substance Use Type: Reports: None Smoking Status (MU): Former Smoker Type: Cigarettes Amount Used/How Often: 1.5-2 PPD Length of Time of Smoking/Using Tobacco: 40 YEARS Have You Smoked in the Last Year: No Review of Systems Positive: Fatigue Eyes: Negative ENT: Negative Cardiovascular: Negative Respiratory: Negative Gastrointestinal: Negative Genitourinary: Negative Musculoskeletal: Negative Skin: Negative Neurological: Negative Psychological: Normal All Other Systems Reviewed And Are Negative: Yes Physical Exam - Summary Physical Exam Summary: Neuro exam normal. Physical exam unremarkable. Triage Information Reviewed: Yes Vital Signs On Initial Exam: Initial Vitals Temp Pulse Resp BP Pulse Ox 98.5 F 110 16 135/83 94 09/07/18 15:58 09/07/18 15:58 09/07/18 15:58 09/07/18 15:58 09/07/18 15:58 Vital Signs Reviewed: Yes Appearance: Positive: Well-Appearing Skin: Positive: Warm Head/Face: Positive: Normal Head/Face Inspection Eyes: Positive: Normal ENT: Positive: Normal ENT inspection Neck: Positive: Supple Respiratory/Lung Sounds: Positive: Clear to Auscultation Cardiovascular: Positive: Normal Abdomen Description: Positive: Nontender Musculoskeletal: Positive: Normal Neurological: Positive: Normal Psychiatric: Positive: Normal AVPU Assessment: Alert - [place] Coma Scale Best Eye Response: 4 - Spontaneous Best Motor Response: 6 - Obeys Commands Best Verbal Response: 5 - Oriented Coma Scale Total: 15 Diagnostics - Vital Signs Vital Signs Temp Pulse Resp BP Pulse Ox 09/07/18 20:36 96 18 127/80 92 09/07/18 19:43 99.0 F 09/07/18 18:06 98.2 F 92 16 142/80 92 09/07/18 15:58 98.5 F 110 16 135/83 94 - Laboratory Lab Results: Lab Results 09/07/18 09/07/18 09/07/18 Range/Units 16:46 16:46 18:15 WBC 5.0 (3.5-10.8) 10^3/ul RBC 4.83 (4.00-5.40) 10^6/ul Hgb 14.9 (12.0-16.0) g/dl Hct 45 (35-47) % MCV 93 (80-97) fL MCH 31 (27-31) pg MCHC 33 (31-36) g/dl RDW 15 (10.5-15) % Plt Count 219 (150-450) 10^3/ul MPV 7.5 (7.4-10.4) fL Neut % (Auto) 70.6 % Lymph % (Auto) 14.2 % Dickson % (Auto) 9.9 % Eos % (Auto) 4.5 % Baso % (Auto) 0.8 % Absolute Neuts (auto) 3.5 (1.5-7.7) 10^3/ul Absolute Lymphs (auto) 0.7 L (1.0-4.8) 10^3/ul Absolute Monos (auto) 0.5 (0-0.8) 10^3/ul Absolute Eos (auto) 0.2 (0-0.6) 10^3/ul Absolute Basos (auto) 0 (0-0.2) 10^3/ul Absolute Nucleated RBC 0 10^3/ul Nucleated RBC % 0.1 Sodium 136 (135-145) mmol/L Potassium 3.7 (3.5-5.0) mmol/L Chloride 103 (101-111) mmol/L Carbon Dioxide 25 (22-32) mmol/L Anion Gap 8 (2-11) mmol/L BUN 23 (6-24) mg/dL Creatinine 1.17 H (0.51-0.95) mg/dL Est GFR ( Amer) 53.5 (>60) Est GFR (Non-Af Amer) 44.2 (>60) BUN/Creatinine Ratio 19.7 (8-20) Glucose 144 H (70-100) mg/dL Calcium 9.2 (8.6-10.3) mg/dL Total Bilirubin 0.40 (0.2-1.0) mg/dL AST 20 (13-39) U/L ALT 24 (7-52) U/L Alkaline Phosphatase 65 (34-104) U/L C-Reactive Protein 19.20 H (<8.01) mg/L Total Protein 7.0 (6.4-8.9) g/dL Albumin 3.9 (3.2-5.2) g/dL Globulin 3.1 (2-4) g/dL Albumin/Globulin Ratio 1.3 (1-3) Beta HCG, Quant 5.64 mIU/mL Urine Color Yellow Urine Appearance Cloudy Urine pH 5.0 (5-9) Ur Specific Dixon 1.006 L (1.010-1.030) Urine Protein Negative (Negative) Urine Ketones Negative (Negative) Urine Blood 1+ A (Negative) Urine Nitrate Negative (Negative) Urine Bilirubin Negative (Negative) Urine Urobilinogen Negative (Negative) Ur Leukocyte Esterase 3+ A (Negative) Urine WBC (Auto) 3+(>20/hpf) A (Absent) Urine RBC (Auto) 3+(>10/hpf) A (Absent) Ur Squamous Epith Cells Present A (Absent) Ur Renal Epithelial Cell Present A (Absent) Urine Bacteria 1+ A (Absent) Urine Glucose Negative (Negative) Result Diagrams: 09/07/18 16:46 09/07/18 16:46 Lab Statement: Any lab studies that have been ordered have been reviewed, and results considered in the medical decision making process. Course/Dx - Course Course Of Treatment: Patient complains of fatigue times weeks, persistent right shoulder pain since urge her injury 6 weeks ago, low temperatures over the past 2 days down to 94. Patient states she was evaluated for right shoulder pain by orthopedics and was advised to start weight training. Patient states she has not been weight training but has had increased activity as she is taking care of her son who has stage IV colorectal cancer. Patient states she is also eating less and consuming less fluids as she is stressed and fatigued by taking care of her son. Patient states low temperatures of 94-97 over the past 2 days. Denies fever, cough, sore throat, CP, SOB, N/V/D, abdominal pain, change in urine, change in BM. Medical history is hypothyroid, osteoporosis, COPD, kidney states disease stage II. Former smoker. Physical exam:Neuro exam normal. Physical exam unremarkable. Vital signs within normal limits and stable. Creatinine at patient baseline. Labs otherwise unremarkable. UA positive for UTI. Patient placed on Keflex pending cultures. - Diagnoses Provider Diagnoses: UTI (urinary tract infection) Discharge - Sign-Out/Discharge Documenting (check all that apply): Patient Departure - Discharge Plan Condition: Stable Disposition: HOME Prescriptions: Cephalexin CAP* [Keflex CAP*] 500 mg PO BID 7 Days #14 cap Patient Education Materials: Urinary Tract Infection in Older Adults (ED) Referrals: Isak Antonio MD [Primary Care Provider] - Additional Instructions: Take antibiotics as directed. Drink plenty of fluids. Follow-up with primary care. Return to the ED for any new or worsening symptoms. - Billing Disposition and Condition Condition: STABLE Disposition: Home
== END 2018-09-07 21:17 | disposition home or self-care (01) ==
LOC: ED 15:47
DX: N39.0 Urinary tract infection, site not specified (principal); Z87.891 Personal history of nicotine dependence; E03.9 Hypothyroidism, unspecified; J44.9 Chronic obstructive pulmonary disease, unspecified; Z87.442 Personal history of urinary calculi; M81.0 Age-related osteoporosis without current pathological fracture; N18.2 Chronic kidney disease, stage 2 (mild)
CPT/HCPCS: 36415; 80053; 81003; 81015; 84702; 85025; 86140; 87040; 87086; 99282; A9270-GY